=== PATIENT | male | born 1955 | race Caucasian/White ===

== ENCOUNTER 2020-12-04 10:12 | Outpatient (CLI) | payer BC ==
--- NOTE | 2020-12-04 12:39 | RAD ---
RIGHT SHOULDER 2 VIEWS: HISTORY: Right shoulder pain. FINDINGS/IMPRESSION: No acute fracture or dislocation is seen. There is a soft tissue calcific density in the region of t he rotator cuff suspicious for calcific tendinosis. There are degenerative changes in the acromiocla vicular joint. POS: OFF
== END 2020-12-04 10:13 | disposition home or self-care (01) ==
LOC: BICRAD 10:12
PROVIDERS: ATTEND Family Medicine
DX: M25.511 Pain in right shoulder (principal); M19.011 Primary osteoarthritis, right shoulder